=== PATIENT | male | born 1975 | race Caucasian/White ===

== ENCOUNTER 2024-09-18 01:03 | Emergency (ER) | payer MEDICARE ==
[~2024-09-18] VITALS: Ht 188 cm; Wt 93.0 kg
[2024-09-18 01:06] VITALS: PULSE 99; RESP 20; TEMP 97.1
[2024-09-18] MEDS ORDERED: AMOX TR-K CLV1 EAC2 PO (02:52)
[2024-09-18] MEDS ORDERED: KETOROLAC TROME10 MG PO (02:53)
[2024-09-18 03:04] VITALS: BP 118/75; O2SAT 98
== END 2024-09-18 03:03 | disposition home or self-care (01) ==
LOC: ER 01:15
DX: M79.671 Pain in right foot (principal); E10.9 Type 1 diabetes mellitus without complications; E03.9 Hypothyroidism, unspecified; F84.0 Autistic disorder; M54.9 Dorsalgia, unspecified; G89.29 Other chronic pain; Q99.2 Fragile X chromosome
CPT/HCPCS: 99283